=== PATIENT | female | born 1995 | race Hispanic/Latino ===

== ENCOUNTER → 2019-02-22 | Outpatient (CLI) | payer OTHER ==
--- NOTE | 2019-02-22 16:20 | REP ---
MAXILLOFACIAL CT WITHOUT CONTRAST: HISTORY: Smell disturbance. 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 Minimal mucosal thickening is present in the maxillary sinuses. The remaining sinuses are clear. The ostiomeatal units are patent. The middle and inferior nasal turbinates are partially paradoxical. There is minimal deviation of the nasal septum to the right superiorly and mild deviation to the left inferiorly. A spur is present arising from the left side of the nasal septum. The spur abuts the left inferior nasal turbinate. The cribriform plate, medial perez of the orbits and optic canals are intact. The carotid canals form a segment of the posterolateral perze of the sphenoid sinus. IMPRESSION: Sinus mucosal thickening as described above. Electronically Signed by Dale Flores MD 02/22/2019 04:24 P
== END ==
LOC: M RAD 15:44
PROVIDERS: ATTEND Otolaryngology
DX: R43.9 Unspecified disturbances of smell and taste (principal)

== ENCOUNTER → 2019-03-20 | Outpatient (REF) | payer OTHER ==
[2019-03-21 12:36] LABS: CHLAMYDIA DNA AMPLIFICATION NEGATIVE (NEGATIVE); GC DNA AMPLIFICATION NEGATIVE (NEGATIVE)
== END ==
LOC: M LAB REF 10:22
PROVIDERS: ATTEND Physician Assistant
DX: R30.0 Dysuria (principal)

== ENCOUNTER 2019-04-26 10:32 | Day surgery (SDC) | payer OTHER ==
[~2019-04-26] VITALS: Ht 162.6 cm; Wt 91.1 kg
[2019-04-26] MEDS: EPINEPHrine INJ 1 MG/ML 1ML AMP As Ordered ONE (06:57)
[~2019-04-26 10:32] MED LIST: FLUTISP NARES; LIDOCAINE W/EPINEPHRINE 1% 20ML VIAL As Ordered ONE; METHYLENE BLUE 0.5% (5MG/ML) 10 ML AMP (PROVAYBLUE)(Q9968 PER 1MG) As Ordered ONE; OMEP-218 PO; SODIUM CHLORIDE 0.9% NASAL GEL 15GM (AYR) As Ordered ONE
[2019-04-26] MEDS ORDERED: MIDAZOLAM INJ 2 MG/2 ML VIAL (J2250) As Ordered ONE (10:35)
[2019-04-26] MEDS ORDERED: fentaNYL 100 MCG/2 ML INJECTION (J3010) As Ordered ONE ×3 (10:35→13:03)
[2019-04-26] MEDS ORDERED: ONDANSETRON 4MG/2ML VIAL (J2405) As Ordered ONE (10:37)
[2019-04-26] MEDS ORDERED: KETOROLAC 60 MG/2 ML VIAL (J1885) As Ordered ONE (10:37)
[2019-04-26] MEDS ORDERED: ROCURONIUM BROMIDE 50 MG/5 ML VIAL As Ordered ONE ×2 (10:38→13:00)
[2019-04-26] MEDS ORDERED: PROPOFOL 200 MG/20 ML VIAL As Ordered ONE (10:39)
[2019-04-26] MEDS ORDERED: LIDOCAINE 2% INJ 100 MG/5 ML SDV (FOR ANES.) As Ordered ONE (10:39)
[2019-04-26] MEDS ORDERED: dexameTHASONE 4 MG/ML 1ML VIAL (J1100) As Ordered ONE (10:39)
[2019-04-26 11:03] LABS: URINE PREG TEST NEGATIVE (NEGATIVE)
[2019-04-26] MEDS ORDERED: EPINEPHrine 1MG/ML INJ 30ML MD-VIAL As Ordered ONE (12:42)
[2019-04-26] MEDS ORDERED: SUGAMMADEX SODIUM 500 MG/5 ML VIAL (BRIDION) As Ordered ONE (12:51)
[2019-04-26] MEDS ORDERED: ONDANSETRON 4MG/2ML VIAL (J2405) IV PRN (13:45)
[2019-04-26] MEDS ORDERED: fentaNYL 100 MCG/2 ML INJECTION (J3010) IV PRN (13:45)
[2019-04-26] MEDS ORDERED: LR 1,000 ML IV SCH (13:45)
[2019-04-26] MEDS ORDERED: oxyCODONE 5MG TAB PO PRN (13:45)
[2019-04-26] MEDS ORDERED: METOCLOPRAMIDE INJ 10MG/2ML VIAL (J2765) As Ordered ONE (14:16)
[2019-04-26 14:45] VITALS: BP 110/56
[2019-04-26] MEDS ORDERED: METOCLOPRAMIDE INJ 10MG/2ML VIAL (J2765) IV PRN (15:00)
--- NOTE | 2019-05-02 10:52 | RO ---
DATE OF PROCEDURE: 04/26/2019 PREPROCEDURE DIAGNOSES: Deviated nasal septum and hypertrophy of the inferior nasal turbinate. POSTPROCEDURE DIAGNOSES: Deviated nasal septum and hypertrophy of the inferior nasal turbinate. PROCEDURES PERFORMED: 1. Septoplasty. 2. Coblation of the right and the left inferior nasal turbinates. SURGEON: Skyler Wang MD HISTORIC PRESERVATIONIST: ANESTHESIA: General. CLINICAL PREAMBLE: This 24-year-old woman presented to the office with history of chronic nasal congestion. Physical examination revealed deviated nasal septum, as well as hypertrophic nasal turbinates. Management options, including surgery listed above, have been discussed. The patient understood and consented to the procedure. DESCRIPTION OF PROCEDURE: Operating room (OR) narration: The patient was identified in preoperative holding and brought to the operating room in stable condition. She was placed in supine position on the operating room table. The patient received general anesthesia, followed by orotracheal intubation without incident. The patient was prepped and draped in the usual fashion for the procedure. Both sides of the nasal cavity were packed using pledgets soaked in 1:1000 epinephrine. After a waiting period, the pledgets were removed. Both sides of the nasal septum were infiltrated with 1% lidocaine with 1:100,000 epinephrine. The L strut of the nasal dorsum was palpated and found to be intact. A left hemitransfixion incision was made. Mucoperichondrial and mucoperiosteal flap was developed on the left side of the nasal septum. The bony cartilaginous junction was identified and then disarticulated. The deviated portion of the perpendicular plate in the bone was resected using the cutting Varinder-Deirdre forceps. The deviated portion of the nasal septal cartilage was isolated and resected, as well. The maxillary crest was isolated and resected, as well. At this time, the nasal septum had returned to the midline position. The left hemitransfixion incision was then closed using 3-0 chromic suture. At this time, the anterior surface of the left and right inferior nasal turbinates were infiltrated with 1% lidocaine with 1:100,000 epinephrine. A stab incision was made over at the anterior surface of the right inferior nasal turbinate. Using the Turbinator wand for the coblation device set at 4 for coblation, the Turbinator was inserted in the submucosal plane inferiorly along the inferior nasal turbinate. Coblation was then performed as the wand was retracted. Three additional passes were made in the submucosal plane along the right inferior nasal turbinate to complete the coblation of the turbinate. The same procedure was then carried out to coblate the left inferior nasal turbinate using the same technique. At the end of the procedure, sponge and instrument counts were correct. The Dudley splints were then inserted into each side of the nasal cavity and then secured anteriorly using 3-0 nylon suture. Estimated blood loss was approximately 20 mL. No complication encountered. General anesthesia was reversed, and the patient was extubated and brought to the recovery room in stable condition.
== END 2019-04-26 16:21 | disposition home or self-care (01) ==
LOC: EEVIPCON 10:32 → M SDC 10:32
PROVIDERS: ATTEND Otolaryngology
DX: J34.2 Deviated nasal septum (principal); J34.3 Hypertrophy of nasal turbinates; K21.9 Gastro-esophageal reflux disease without esophagitis; Z79.899 Other long term (current) drug therapy; F41.9 Anxiety disorder, unspecified
CPT/HCPCS: 30140; 30520; 84703; 88300; J1100; J1885; J2250; J2405; J2765; J3010; Q9968